=== PATIENT | male | born 1940 | race Caucasian/White ===

== ENCOUNTER 2017-12-06 14:55 | Emergency (ER) | payer MEDICARE ==
[2017-12-06] MEDS: ONDANSETRON PF 4 MG/2 ML VIAL. IV ×2 (16:06)
[2017-12-06] MEDS: IV NORMAL SALINE 500ML BAG 500 ML IV ×2 (16:07)
[2017-12-06] MEDS: fentaNYL PF VIAL 100 MCG/2 ML VIAL IV ×4 (16:07→17:45)
[2017-12-06 16:19] LABS: ADD MAN DIFF? NO
[2017-12-06 16:20] LABS: BASO % 0 % (0-3); EOS # 0.1 x10^3/uL (0.0-0.7); EOS % 1 % (0-3); HEMATOCRIT 45.8 % (39.0-53.0); HEMOGLOBIN 15.3 g/dL (13.0-17.5); LYMPH # 2.6 x10^3/uL (1.0-4.8); LYMPH % 27 % (24-48); MEAN CORPUSCULAR HEMOGLOBIN 30 pg (25-35); MEAN CORPUSCULAR HGB CONC 33 g/dL (31-37); MEAN CORPUSCULAR VOLUME 90 fL (79-100); MONO % 10 % (0-9); NEUT % 62 % (31-73); PLATELET COUNT 191 x10^3/uL (140-400); RED BLOOD COUNT 5.11 x10^6/uL (4.30-5.70); WHITE BLOOD COUNT 9.6 x10^3/uL (4.0-11.0)
[2017-12-06 16:32] LABS: BILIRUBIN,URINE NEGATIVE (NEG); COLOR,URINE YELLOW; GLUCOSE,URINE NEGATIVE (NEG); NITRITE,URINE POSITIVE (NEG); PROTEIN,URINE NEGATIVE (NEG-TRACE); UROBILINOGEN,URINE 0.2 mg/dL (0.2 mg/dL)
[2017-12-06 16:40] LABS: ANION GAP 6 (6-14); BLOOD UREA NITROGEN 19 mg/dL (8-26); BUN/CREATININE RATIO 16 (6-20); CALCIUM 9.3 mg/dL (8.5-10.1); CARBON DIOXIDE 30 mmol/L (21-32); CHLORIDE 102 mmol/L (98-107); CREATININE 1.2 mg/dL (0.7-1.3); GFR 58.6; GLUCOSE 121 mg/dL (70-99); POTASSIUM 3.6 mmol/L (3.5-5.1); SODIUM 138 mmol/L (136-145)
[2017-12-06 16:45] LABS: ALBUMIN 3.3 g/dL (3.4-5.0); ALBUMIN/GLOBULIN RATIO 0.8 (1.0-1.7); ALK PHOS 78 U/L (46-116); ALT (SGPT) 34 U/L (16-63); AST (SGOT) 21 U/L (15-37); TOTAL BILIRUBIN 0.4 mg/dL (0.2-1.0); TOTAL PROTEIN 7.6 g/dL (6.4-8.2)
[2017-12-06 16:46] LABS: CLARITY,URINE CLEAR
[2017-12-06 16:51] LABS: BACTERIA,URINE MODERATE /HPF (0-FEW); RBC,URINE 0 /HPF (0-2); SQUAMOUS EPITHELIAL CELL,UR OCC /LPF
== END 2017-12-06 18:35 | disposition home or self-care (01) ==
LOC: ER 14:55
DX: N39.0 Urinary tract infection, site not specified (principal); K21.9 Gastro-esophageal reflux disease without esophagitis; I10 Essential (primary) hypertension; E11.9 Type 2 diabetes mellitus without complications; Z96.641 Presence of right artificial hip joint
CPT/HCPCS: 36415; 74176; 80053; 81001; 85025; 87086; 87186; 96361; 96365; 96375; 96376; 99285-25; J0690; J2405; J3010; J7040

== ENCOUNTER 2019-03-08 19:49 | Inpatient (IN) | payer MEDICARE ==
[~2019-03-08] VITALS: Ht 193 cm; Wt 140.7 kg
[~2019-03-08 19:49] MED LIST: AMLO5TAB10 PO; ASCO10002 PO; ASPI-252 PO; ASPI-253 PO; BYSTOLIC10 MG PO; CHOL10003 PO; CHOL5000 PO; CRESTOR10 MG PO; ESOM20CA PO; ESOM40CA PO; FISH1CAP PO; GABA-585 PO; LOSA1TAB22 PO; METF500T16 PO; MIRA50TA PO; MULT-658 PO; NAPR220C4 PO; NITR100C62 PO; NORT25CA PO; OMEG1CAP38 PO; OMEP20TA63 PO; PITA2TAB2 PO; PRED1DRO OP; SIMV10TA3 PO; SUCR1TAB35 PO; TAMS0.4C97 PO; TIMO5SOL10 OP; TRAV5DRO EACHEYE; TROS20TA2 PO; [UNRECOGNIZED DRUG - CODE]
[2019-03-08] MEDS ORDERED: CEFEPIME HCL IV Push 2 GM VIAL. IVP ONE (20:00)
[2019-03-08] MEDS ORDERED: IV NORMAL SALINE 1000ML BAG 1,000 ML IV ONE ×4 (20:00→22:00)
[2019-03-08 20:09] LABS: BASO % 0 % (0-3); EOS % 0 % (0-3); HEMATOCRIT 47.8 % (39.0-53.0); HEMOGLOBIN 15.8 g/dL (13.0-17.5); LYMPH # 1.8 x10^3/uL (1.0-4.8); LYMPH % 20 % (24-48); MEAN CORPUSCULAR HEMOGLOBIN 31 pg (25-35); MEAN CORPUSCULAR HGB CONC 33 g/dL (31-37); MEAN CORPUSCULAR VOLUME 92 fL (79-100); MONO # 0.4 x10^3/uL (0.0-1.1); MONO % 5 % (0-9); NEUT # 6.6 x10^3uL (1.8-7.7); NEUT % 75 % (31-73); PLATELET COUNT 202 x10^3/uL (140-400); RED BLOOD COUNT 5.17 x10^6/uL (4.30-5.70); RED CELL DISTRIBUTION WIDTH 14.4 % (11.5-14.5); WHITE BLOOD COUNT 8.8 x10^3/uL (4.0-11.0)
--- NOTE | 2019-03-08 20:15 | RAD ---
CT CODE STROKE HEAD WO History: Left-sided weakness Comparison: None. Technique: Noncontrast CT imaging was performed of the head. Exposure: One or more of the following individualized dose reduction techniques were utilized for this examination: 1. Automated exposure control 2. Adjustment of the mA and/or kV according to patient size 3. Use of iterative reconstruction technique. Findings: There is motion degradation. No convincing acute intracranial hemorrhage is identified. There is mild to moderate supratentorial atrophy, prominence of bifrontal subarachnoid spaces. Ventricular size is within normal limits. There is atherosclerotic calcification of the carotid siphons bilaterally. Sifuenets-white differentiation of the major vascular territories is maintained. Visualized paranasal sinuses and mastoid air cells are aerated. Impression: 1. There is no evidence of acute intracranial hemorrhage. 2. There is supratentorial atrophy more greatly affecting frontal lobes. FOR INTERNAL CODING PURPOSES Critical result: Findings discussed with VAISHALI JOLLY at 03/08/2019 8:12 PM. RESULT CODE: (C) Electronically signed by: Darío Cohen MD (03/08/2019 8:13 PM) [facility]
[2019-03-08 20:21] LABS: CALCIUM 8.9 mg/dL (8.5-10.1); CREATININE 2.5 mg/dL (0.7-1.3); POTASSIUM 3.4 mmol/L (3.5-5.1)
--- NOTE | 2019-03-08 20:23 | RAD ---
CHEST AP ONLY History: Weakness, sepsis Comparison: 12/10/2012 Findings: Single view of the chest is submitted. There is a lesser degree of inspiration for this exam. Pericardial cardiac silhouette is somewhat prominent as seen previously. There is no new convincing lobar infiltrate. There is some degree of beam attenuation by soft tissues. There is no pneumothorax or convincing pleural fluid. Appearance of more prominent mediastinal width is probably accentuated by lesser degree of inspiration. Impression: 1. There is no convincing infiltrate allowing for limitations of exam, suboptimal inspiration. Electronically signed by: Darío Cohen MD (03/08/2019 8:20 PM) [facility]
--- NOTE | 2019-03-08 20:31 | PHYS DOC ---
Past Medical History Past Medical History: Arthritis, GERD, Hypertension, Kidney Stone Additional Past Medical Histor: "cancer" Past Surgical History: Hip Replacement, Tonsillectomy Additional Past Surgical Histo: r hip, r knee, hernia repair, r rotator cuff, left hip Alcohol Use: None Drug Use: None Adult General Chief Complaint Chief Complaint: NEURO SYMPTOMS/DEFICITS HPI HPI Patient is a 78 year old M who presents with near syncope. Pt went to use the restroom and could not get off the toilet. EMS was called. He is generally weak. Code stroke activated ADMINISTRATION PHYSICIAN. The patient's only complaint is weakness. He otherwise appears tired and cannot answer questions in detail. He denies recent illness, cp, sob. has arrived - he has been vomiting since 0300 this morning. Denies abd pain. Review of Systems Review of Systems Constitutional: Denies fever or chills Eyes: Denies change in visual acuity, redness, or eye pain HENT: Denies nasal congestion or sore throat Respiratory: Denies cough or shortness of breath Cardiovascular: Denies CP GI: Denies abdominal pain, nausea, vomiting, bloody stools or diarrhea : Denies dysuria or hematuria Musculoskeletal: Denies back pain or joint pain Integument: Denies rash or skin lesions Neurologic: Denies headache, focal weakness or sensory changes All other systems were reviewed and found to be within normal limits, except as documented in this note. Current Medications Current Medications Current Medications Medications (Trade) Dose Ordered Sig/Rylee Start Time Stop Time Status Last Admin Dose Admin Cefepime HCl (Maxipime) 2 gm 1X ONCE 03/08/19 20:00 03/08/19 20:07 DC 03/08/19 20:00 2 GM Sodium Chloride 1,000 ml @ 1,000 mls/hr 1X ONCE 03/08/19 20:00 03/08/19 20:59 DC 03/08/19 19:58 1,000 MLS/HR Allergies Allergies Allergies Coded Allergies Type Severity Reaction Last Updated Verified No Known Drug Allergies 09/19/13 No Physical Exam Physical Exam Constitutional: Well developed, well nourished, no acute distress, non-toxic appearance. HENT: Normocephalic, atraumatic, bilateral external ears normal, oropharynx moist, no oral exudates, nose normal. Eyes: PERRLA, EOMI, conjunctiva normal, no discharge. Neck: Normal range of motion, no tenderness, supple, no stridor. Cardiovascular:Heart rate regular rhythm, no murmur Lungs & Thorax: Bilateral breath sounds clear to auscultation Abdomen: Bowel sounds normal, soft, no tenderness, no masses, no pulsatile masses. Skin: Warm, dry, no erythema, no rash. Back: No tenderness, no CVA tenderness. Extremities: No tenderness, no cyanosis, no clubbing, ROM intact, no edema. Neurologic: Alert and oriented X 3, normal motor function, normal sensory function, no focal deficits noted. Psychologic: Affect normal, judgement normal, mood normal. Current Patient Data Vital Signs Vital Signs Date Time Temp Pulse Resp B/P (MAP) Pulse Ox O2 Delivery O2 Flow Rate FiO2 03/08/19 21:59 136 91/61 (71) 98 Nasal Cannula 6.0 03/08/19 19:59 20 03/08/19 19:50 99.0 99.0 Lab Values Laboratory Tests Test 03/08/19 20:00 03/08/19 20:50 White Blood Count 8.8 x10^3/uL (4.0-11.0) Red Blood Count 5.17 x10^6/uL (4.30-5.70) Hemoglobin 15.8 g/dL (13.0-17.5) Hematocrit 47.8 % (39.0-53.0) Mean Corpuscular Volume 92 fL (79-100) Mean Corpuscular Hemoglobin 31 pg (25-35) Mean Corpuscular Hemoglobin Concent 33 g/dL (31-37) Red Cell Distribution Width 14.4 % (11.5-14.5) Platelet Count 202 x10^3/uL (140-400) Neutrophils (%) (Auto) 75 % (31-73) H Lymphocytes (%) (Auto) 20 % (24-48) L Monocytes (%) (Auto) 5 % (0-9) Eosinophils (%) (Auto) 0 % (0-3) Basophils (%) (Auto) 0 % (0-3) Neutrophils # (Auto) 6.6 x10^3uL (1.8-7.7) Lymphocytes # (Auto) 1.8 x10^3/uL (1.0-4.8) Monocytes # (Auto) 0.4 x10^3/uL (0.0-1.1) Eosinophils # (Auto) 0.0 x10^3/uL (0.0-0.7) Basophils # (Auto) 0.0 x10^3/uL (0.0-0.2) Sodium Level 141 mmol/L (136-145) Potassium Level 3.4 mmol/L (3.5-5.1) L Chloride Level 101 mmol/L (98-107) Carbon Dioxide Level 16 mmol/L (21-32) L Anion Gap 24 (6-14) H Blood Urea Nitrogen 41 mg/dL (8-26) H Creatinine 2.5 mg/dL (0.7-1.3) H Estimated GFR (Cockcroft-Gault) 25.0 BUN/Creatinine Ratio 16 (6-20) Glucose Level 299 mg/dL (70-99) H Lactic Acid Level 8.9 mmol/L (0.4-2.0) *H Calcium Level 8.9 mg/dL (8.5-10.1) Total Bilirubin 0.4 mg/dL (0.2-1.0) Aspartate Amino Transferase (AST) 22 U/L (15-37) Alanine Aminotransferase (ALT) 27 U/L (16-63) Alkaline Phosphatase 77 U/L (46-116) Troponin I Quantitative 0.056 ng/mL (0.000-0.055) DF-Cbg-Z-Type Natriuretic Peptide 3915 pg/mL (0-449) H Total Protein 6.9 g/dL (6.4-8.2) Albumin 3.0 g/dL (3.4-5.0) L Albumin/Globulin Ratio 0.8 (1.0-1.7) L Urine Collection Type U cath Urine Color Yellow Urine Clarity Cloudy Urine pH 5.0 Urine Specific [place] 1.020 Urine Protein 100 mg/dL (NEG-TRACE) Urine Glucose (UA) Negative mg/dL (NEG) Urine Ketones (Stick) Trace mg/dL (NEG) Urine Blood Moderate (NEG) Urine Nitrite Negative (NEG) Urine Bilirubin Small (NEG) Urine Urobilinogen Dipstick 0.2 mg/dL (0.2 mg/dL) Urine Leukocyte Esterase Moderate (NEG) Urine RBC 6-10 /HPF (0-2) Urine WBC 11-20 /HPF (0-4) Urine Squamous Epithelial Cells Few /LPF Urine Amorphous Sediment Present /HPF Urine Bacteria Few /HPF (0-FEW) Urine Hyaline Casts Few /HPF Urine Mucus Marked /LPF Laboratory Tests 03/08/19 20:00 Laboratory Tests 03/08/19 20:00 EKG EKG [] Radiology/Procedures Radiology/Procedures [] Course & Med Decision Making Course & Med Decision Making Pertinent Labs and Imaging studies reviewed. (See chart for details) 78 y/o M presents for near syncope, gen weakness, vomiting. DDX: viral gastroenteritis vs sepsis vs cardiac CBC, CMP, CT head, CXR, Lactic, Blood cx, UA, Trop, BNP NS bolus, Zofran, Cefepime Sepsis reassessment: Pt responds adequately to fluids with incr in BP to 126 systolic. He is feeling better, mental status has improved. Labs show GILLES. Continue fluid resuscitation. Trop slightly elevated. Admit to Dr. Mtz. 4L fluid resuscitation req for sepsis with lactic greater than 4. BNP is slightly elevated. Will administer judiciously. He is receiving his second L in the ER. Start NS maintenance at 100 cc per hour. Repeat lactic trending down, now at 6. Continue fluid resuscitation. Critical care time: 45 minutes Dragon Disclaimer Dragon Disclaimer This electronic medical record was generated, in whole or in part, using a voice recognition dictation system. Departure Departure Impression: Primary Impression: Vomiting Additional Impressions: GILLES (acute kidney injury) Lactic acidosis Disposition: ADMITTED INPATIENT Admitting Physician: Other Condition: CRITICAL Referrals: TITO MTZ MD (PCP) Problem Qualifiers VAISHALI JOLLY MD March 08, 2019 20:31
[2019-03-08 20:36] LABS: ALBUMIN/GLOBULIN RATIO 0.8 (1.0-1.7); TOTAL BILIRUBIN 0.4 mg/dL (0.2-1.0); TOTAL PROTEIN 6.9 g/dL (6.4-8.2)
[2019-03-08 21:00] LABS: BILIRUBIN,URINE SMALL (NEG); CLARITY,URINE CLOUDY; COLOR,URINE YELLOW; NITRITE,URINE NEGATIVE (NEG); PROTEIN,URINE 100 mg/dL (NEG-TRACE); UROBILINOGEN,URINE 0.2 mg/dL (0.2 mg/dL)
[2019-03-08 21:22] LABS: AMORPHOUS SEDIMENT,UR PRESENT /HPF; BACTERIA,URINE FEW /HPF (0-FEW); HYALINE CASTS, URINE FEW /HPF; SQUAMOUS EPITHELIAL CELL,UR FEW /LPF
--- NOTE | 2019-03-08 21:27 | RAD ---
CT Abdomen and Pelvis without contrast History: Vomiting, elevated lactate Technique: Noncontrast CT imaging was performed of the abdomen and pelvis. Multiplanar images are reviewed. Exposure: One or more of the following individualized dose reduction techniques were utilized for this examination: 1. Automated exposure control 2. Adjustment of the mA and/or kV according to patient size 3. Use of iterative reconstruction technique. Comparison: 12/06/2017 Findings: There is mild lingular atelectasis or infiltrate near the base. There is some distention of stomach. Accurate evaluation of the abdominal visceral organs is limited without intravenous contrast, no obvious focal abnormality liver, spleen, pancreas. Gallbladder is present without obvious intraluminal abnormality by CT. There is no significant adrenal nodularity. There is no hydronephrosis. There is some strandy change of the bilateral perinephric fat although in part present previously. There is again exophytic lesion of the mid to inferior right kidney about 3.5 cm, density measurements greater than a simple cyst at 43 Hounsfield units. Evaluation of bowel is somewhat limited without oral contrast. Bowel is not considered significantly dilated. There is no free air or free fluid. There is some fluid in the more distal sigmoid colon to rectum. There is no CT evidence of acute appendicitis. There is some gas in the urinary bladder lumen, possible wall thickening of the urinary bladder. There is artifact in pelvis created by bilateral hip arthroplasties. There is multilevel advanced lumbar degenerative disc disease. There is also multilevel facet degenerative change. There is suspected moderate to severe spinal stenosis at L2-3, other variable lateral recess stenosis such as at L3-4. There is multilevel lumbar neural foramina compromise. There is some gas in the right iliac vein. Impression: 1. No significant localized inflammatory type change is identified about the bowel. There is no CT evidence of acute appendicitis. There is some nonspecific distention of the stomach. 2. There is a exophytic lesion of the right kidney, density measurements indeterminate for simple cyst. As a solid lesion is not excluded, nonemergent ultrasound evaluation is recommended. 3. There is multilevel lumbar degenerative disc disease and facet degenerative change. There is multilevel neural foramina compromise. There is suspected spinal stenosis greatest at L2-3. 4. There is mild lingular atelectasis or infiltrate. 5. There is focus of gas in the urinary bladder. If there has not been recent catheterization, infection with gas-forming organism is not excluded. 6. There is gas in the right iliac vein, could be related to recent IV if corresponding history. Electronically signed by: Darío Cohen MD (03/08/2019 9:24 PM) [facility]
[2019-03-08 22:45] VITALS: BP 83/53
[2019-03-08 23:00] VITALS: BP 94/51
[2019-03-08 23:15] VITALS: BP 91/62
[2019-03-08 23:30] VITALS: BP 92/61
[2019-03-08 23:45] VITALS: BP 84/57
[2019-03-09] VITALS (16 sets, daily range): BP systolic 84–124; BP diastolic 43–90
--- NOTE | 2019-03-09 07:41 | NUR ---
Pt. admitted to ICU room 114 from ED, arrived to unit on cart, transferred to ICU bed. Recheck lactic acid drawn in ED, critical results called to ED physician and Dr. Mtz. Dr. Mtz updated on pt. condition, to continue current POC. Spoke with Mary Alice, pt's by phone and updated on current condition. Pt. having copious loose foul smelling stools, sample sent to lab for c-dif testing. Rectal tube inserted to protect pt's skin.
--- NOTE | 2019-03-09 12:18 | PDOC ---
Provider Note Provider Note [id number] TITO HARRIS MD March 09, 2019 12:18
[2019-03-09] MEDS ORDERED: amLODIPine BESYLATE 5 MG TABLET PO SCH (12:30)
[2019-03-09] MEDS ORDERED: hydroCHLOROthiazide 25 MG TABLET PO SCH (12:30)
[2019-03-09] MEDS ORDERED: metFORMIN 500 MG TABLET PO SCH (12:30)
[2019-03-09] MEDS ORDERED: ASPIRIN ENTERIC COATED 81 MG TABLET.DR. PO SCH (12:30)
[2019-03-09] MEDS: METOPROLOL TART IMMED RELEASE 25 MG TABLET. PO SCH ×2 (12:30→21:32)
[2019-03-09] MEDS ORDERED: LOSARTAN POTASSIUM 50 MG TABLET. PO SCH (12:30)
--- NOTE | 2019-03-09 12:35 | HP ---
ADMIT DATE: 03/08/2019 CHIEF COMPLAINT: Weakness, fever, vomiting and diarrhea. HISTORY OF PRESENT ILLNESS: A 78-year-old white male with known diet-controlled diabetes, prostate cancer and dysfunctional bladder, had bladder Botox injections 2 days prior to admission at [facility]. He has had this procedure 3 or 4 times and had no problems. He received intraoperative antibiotics of some type and went home on no antibiotics. About 24 hours later, he developed vomiting and diarrhea, nonbloody in nature and increasing weakness and fatigue. He has had increasing weakness, fatigue in the last several weeks as well. He is on no meds for diabetes, but takes four blood pressure drugs and is on Zytiga and low-dose prednisone for prostate cancer suppression. He has not traveled recently. He has not had any unusual foods, no new medications, and his and family have not been ill. He does self-catheterization at home. PAST MEDICAL HISTORY: ALLERGIES: No drug allergies. MEDICATIONS: Multiple meds listed per the chart. Last A1c was 5 months ago was 6.7 in our office. IMMUNIZATION STATUS: Unknown. SOCIAL HISTORY: Retired, not physically active, nonsmoker, nondrinker. FAMILY HISTORY: Unremarkable. REVIEW OF SYSTEMS: No other known problems. OBJECTIVE: ENT: Skin pale, mucosa looked a little dry, otherwise unremarkable. NECK: No masses, nodes or thyroid enlargement. LUNGS: Clear, without tachypnea. CARDIOVASCULAR: Regular rate about 100. No murmurs heard. ABDOMEN: Soft, mildly distended, hyperreactive bowel sounds, nontender, no masses. EXTREMITIES: 1-2+ edema. Pedal pulses reasonable. No joint or skin lesions are seen. NEUROLOGIC: Physiologic, alert, appropriate, responsive, nonfocal. ASSESSMENT: 1. Acute renal failure, etiology is multifactorial including hypotension, iatrogenic, some degree of dehydration. 2. Fever, vomiting, diarrhea, etiology unclear. Most likely diagnosis appears to be C. diff colitis, but he has had minimal antibiotics. No recent travel or other obvious red flags. 3. Diet controlled diabetes. 4. Metastatic prostate cancer, controlled with Zytiga and prednisone, so the patient is immunosuppressed. 5. Hypotension secondary to multiple meds and dehydration. 6. Status post bladder Botox injections. PLAN: Continue vigorous fluids for now. Hold multiple meds, low dose hydrocortisone supplementation while we get blood and urine cultures. We will give a single dose of Flagyl to cover the possibility of C. diff colitis while the stool test is pending. We will follow renal function. Elevated troponin may well just be demand as he has had no cardiovascular symptoms and no significant history of same. TITO HARRIS MD DR: EDUAR/erik JOB#: [id number] / [id number]
[2019-03-09] MEDS: CHOLECALCIFEROL (VITAMIN D3) 1,000 UNIT TABLET PO SCH (13:18)
[2019-03-09] MEDS: HYDROCORTISONE SOD SUCC/PF 100 MG/2 ML VIAL. IV SCH ×2 (13:18→21:37)
[2019-03-09] MEDS: POTASSIUM CL 20MEQ D5-0.9%NACL 1,000 ML IV SCH ×2 (13:18→20:19)
[2019-03-09] MEDS: DEXAMETHASONE 0.1% OPHTH SOLUTION 5ML BOTTLE. OU SCH (13:19)
[2019-03-09] MEDS: GABAPENTIN 100 MG CAPSULE. PO SCH ×2 (13:19→21:31)
[2019-03-09] MEDS: TIMOLOL 0.25% OPHTH SOLUTION 5ML BOTTLE. OU SCH (13:19)
[2019-03-09] MEDS: PANTOPRAZOLE 40 MG TABLET.DR. PO SCH (13:19)
[2019-03-09] MEDS: HEPARIN for SUB-Q USE 5,000 UNIT/ML VIAL. SQ SCH ×2 (13:36→21:41)
[2019-03-09] MEDS: ACETAMINOPHEN 325 MG TABLET. PO PRN (16:24)
[2019-03-09] MEDS: SIMVASTATIN 10 MG TABLET PO SCH (21:31)
[2019-03-09] MEDS: LATANOPROST 0.005% OPHTH SOLUTION 2.5ML BOTTLE. OU SCH (21:31)
[2019-03-10] MEDS: ACETAMINOPHEN 325 MG TABLET. PO PRN ×3 (03:19→15:29)
[2019-03-10] MEDS: POTASSIUM CL 20MEQ D5-0.9%NACL 1,000 ML IV SCH ×2 (03:22→09:46)
[2019-03-10 03:43] VITALS: BP 103/58
[2019-03-10 05:36] LABS: CALCIUM 7.7 mg/dL (8.5-10.1); CREATININE 1.5 mg/dL (0.7-1.3); GFR 45.1
[2019-03-10] MEDS: HEPARIN for SUB-Q USE 5,000 UNIT/ML VIAL. SQ SCH ×3 (05:39→21:06)
[2019-03-10 07:16] VITALS: BP 116/63
[2019-03-10] MEDS: PANTOPRAZOLE 40 MG TABLET.DR. PO SCH (07:30)
[2019-03-10] MEDS: HYDROCORTISONE SOD SUCC/PF 100 MG/2 ML VIAL. IV SCH (08:35)
[2019-03-10] MEDS: DEXAMETHASONE 0.1% OPHTH SOLUTION 5ML BOTTLE. OU SCH (08:35)
[2019-03-10] MEDS: TIMOLOL 0.25% OPHTH SOLUTION 5ML BOTTLE. OU SCH (08:35)
[2019-03-10] MEDS: METOPROLOL TART IMMED RELEASE 25 MG TABLET. PO SCH ×2 (08:42→21:03)
[2019-03-10] MEDS: GABAPENTIN 100 MG CAPSULE. PO SCH ×3 (08:43→21:02)
[2019-03-10] MEDS: CHOLECALCIFEROL (VITAMIN D3) 1,000 UNIT TABLET PO SCH (08:43)
[2019-03-10] MEDS ORDERED: PRED5TAB PO (08:58)
[2019-03-10] MEDS ORDERED: LOSA1TAB22 PO (08:58)
[2019-03-10] MEDS ORDERED: AMLO5TAB10 PO (08:58)
[2019-03-10] MEDS ORDERED: BYSTOLIC10 MG PO (08:58)
[2019-03-10] MEDS ORDERED: ONDA4TAB12 PO (08:58)
[2019-03-10] MEDS ORDERED: FESO8TAB PO (08:58)
[2019-03-10] MEDS ORDERED: ABIR250T PO (08:58)
[2019-03-10] MEDS ORDERED: NON FORMULARY ITEM (Losartan/Hydrochlorothiazide (Losartan-Hctz 100-25 Mg Tab) 1 EACH) PO SCH (09:00)
[2019-03-10] MEDS ORDERED: NON FORMULARY ITEM (Mirabegron (Myrbetriq) 50 MG) PO SCH (09:00)
[2019-03-10 11:06] VITALS: BP 140/67
--- NOTE | 2019-03-10 11:10 | PDOC ---
Provider Note Provider Note no more diarrhea or fever- renal fx better r efluids, K+ lower, will adv diet , red fluids, add po kcl- c diff neg also- NEEDS TO BE IN HOSPITAL TITO HARRIS MD March 10, 2019 11:10
[2019-03-10] MEDS: traMADol 50 MG TABLET PO PRN (12:19)
[2019-03-10] MEDS: POTASSIUM CHLORIDE 10 MEQ TABLET.ER. PO SCH ×2 (12:19→17:40)
[2019-03-10 14:37] VITALS: BP 151/62
--- NOTE | 2019-03-10 15:03 | EKG ---
[facility] [address] [place] [address] Test Date: 2019-03-08 Test Time: 19:53:16 Pat Name: THUAN MEZA Department: Room: Gender: M Fleet Manager: : 1940 Requested By: VAISHALI JOLLY Order Number: [id number] Reading MD: Measurements Intervals [place] Rate: 128 P: -166 NC: 134 QRS: 146 QRSD: 124 T: 19 QT: 330 QTc: 485 Interpretive Statements SUPRAVENTRICULAR RHYTHM ABNORMAL RIGHT AXIS DEVIATION RVH WITH REPOLARIZATION ABNORMALITY ABNORMAL ECG RI6.01 Unconfirmed report No previous ECG available for comparison
[2019-03-10] MEDS: ONDANSETRON ODT 4 MG TAB.RAPDIS. PO PRN ×2 (16:53→22:57)
[2019-03-10 19:00] VITALS: BP 146/74
[2019-03-10] MEDS ORDERED: BENZOCAINE/MENTHOL LOZENGE. PO PRN (19:45)
[2019-03-10] MEDS: SIMVASTATIN 10 MG TABLET PO SCH (21:02)
[2019-03-10] MEDS: LATANOPROST 0.005% OPHTH SOLUTION 2.5ML BOTTLE. OU SCH (21:03)
[2019-03-10 22:50] VITALS: BP 146/78
[2019-03-11] MEDS: POTASSIUM CL 20MEQ D5-0.9%NACL 1,000 ML IV SCH (02:46)
[2019-03-11 03:15] VITALS: BP 144/70
[2019-03-11 03:49] LABS: CALCIUM 7.7 mg/dL (8.5-10.1); CREATININE 1.1 mg/dL (0.7-1.3); GFR 64.6; POTASSIUM 3.2 mmol/L (3.5-5.1)
[2019-03-11] MEDS: HEPARIN for SUB-Q USE 5,000 UNIT/ML VIAL. SQ SCH (05:50)
--- NOTE | 2019-03-11 05:59 | NUR ---
Pt is c/o SOB, pt has audible wheezes upon expiration, IV fluid turned off, Dr. Mtz paged for status changes. Spoke with Dr. Mtz, 40mg IV lasix x 1 and duoneb x 1 ordered. Will administer and monitor for status changes. Bed in low/locked position, call light within reach, VSS.
[2019-03-11] MEDS ORDERED: IPRATRPIUM/ALBUTEROL 0.5/2.5MG 3 ML NEBU. NEB ONE (06:00)
--- NOTE | 2019-03-11 06:14 | NUR ---
Pt refused to turn on his sides throughout shift, stating he's had bilateral hip replacements and it hurts to lay on them. Educated the pt on the importance of moving, and he states understanding.
[2019-03-11] MEDS ORDERED: FUROSEMIDE 40 MG/4 ML VIAL. IVP ONE (06:30)
[2019-03-11] MEDS ORDERED: HYDROCORTISONE SOD SUCC/PF 100 MG/2 ML VIAL. IV SCH (07:00)
[2019-03-11 07:30] VITALS: BP 154/73
--- NOTE | 2019-03-11 07:48 | PDOC ---
Provider Note Provider Note vss, bp better- output good, no more diarrhea/fever- renal back to normal, K+ 3.2- got wheezy so stopped iv saline, 1 dose lasix- helped- weak, will have pt see re ? rehab TITO HARRIS MD March 11, 2019 07:48
[2019-03-11] MEDS: PANTOPRAZOLE 40 MG TABLET.DR. PO SCH (08:09)
[2019-03-11] MEDS: POTASSIUM CHLORIDE 10 MEQ TABLET.ER. PO SCH ×3 (08:10→17:28)
[2019-03-11] MEDS: LOSARTAN POTASSIUM 50 MG TABLET. PO SCH (08:10)
[2019-03-11] MEDS: GABAPENTIN 100 MG CAPSULE. PO SCH ×3 (08:11→20:05)
[2019-03-11] MEDS: CHOLECALCIFEROL (VITAMIN D3) 1,000 UNIT TABLET PO SCH (08:11)
[2019-03-11] MEDS: METOPROLOL TART IMMED RELEASE 25 MG TABLET. PO SCH ×2 (08:11→20:04)
[2019-03-11] MEDS: TIMOLOL 0.25% OPHTH SOLUTION 5ML BOTTLE. OU SCH (08:12)
[2019-03-11] MEDS: traMADol 50 MG TABLET PO PRN ×2 (08:12→17:29)
[2019-03-11] MEDS: DEXAMETHASONE 0.1% OPHTH SOLUTION 5ML BOTTLE. OU SCH (08:14)
[2019-03-11 10:47] VITALS: BP 129/64
[2019-03-11] MEDS ORDERED: PRED5DRO16 RIGHTEYE (10:49)
[2019-03-11] MEDS: PREDNISOLONE OD SCH (12:27)
[2019-03-11] MEDS: ACETAMINOPHEN 325 MG TABLET. PO PRN (12:50)
[2019-03-11 15:00] VITALS: BP 134/69
[2019-03-11 19:05] VITALS: BP 148/72
[2019-03-11] MEDS: LATANOPROST 0.005% OPHTH SOLUTION 2.5ML BOTTLE. OU SCH (20:04)
[2019-03-11] MEDS: SIMVASTATIN 10 MG TABLET PO SCH (20:05)
[2019-03-11 22:35] VITALS: BP 136/67
[2019-03-12 02:40] VITALS: BP 126/69
[2019-03-12 07:00] VITALS: BP 153/74
[2019-03-12] MEDS: PANTOPRAZOLE 40 MG TABLET.DR. PO SCH (08:00)
[2019-03-12] MEDS: PREDNISOLONE OD SCH (08:00)
[2019-03-12] MEDS: CHOLECALCIFEROL (VITAMIN D3) 1,000 UNIT TABLET PO SCH (08:01)
[2019-03-12] MEDS: LOSARTAN POTASSIUM 50 MG TABLET. PO SCH (08:01)
[2019-03-12] MEDS: POTASSIUM CHLORIDE 10 MEQ TABLET.ER. PO SCH ×2 (08:01→13:02)
[2019-03-12] MEDS: GABAPENTIN 100 MG CAPSULE. PO SCH ×2 (08:01→13:02)
[2019-03-12] MEDS: METOPROLOL TART IMMED RELEASE 25 MG TABLET. PO SCH (08:02)
[2019-03-12] MEDS: TIMOLOL 0.25% OPHTH SOLUTION 5ML BOTTLE. OU SCH (08:04)
--- NOTE | 2019-03-12 08:46 | PDOC ---
Provider Note Provider Note [id number] TITO HARRIS MD March 12, 2019 08:46
[2019-03-12] MEDS ORDERED: predniSONE 10 MG TABLET PO SCH (09:00)
--- NOTE | 2019-03-12 10:57 | CARD ---
MR#: [id number] Date of Study: 03/10/2019 Ordering Physician: TITO HARRIS, Referring Physician: TITO HARRIS, Tech: Alba Sanchez APPROVED REPORT EXAM: Two-dimensional and M-mode echocardiogram with Doppler and color Doppler. Other Information Quality : FairHR: 82bpm Technically limited study due to body habitus. INDICATION Fatigue Elevated Troponin RISK FACTORS Diabetes 2D DIMENSIONS RVDd4.4 (2.9-3.5cm)Left Atrium(2D)3.8 (1.6-4.0cm) IVSd1.4 (0.7-1.1cm)Aortic Root(2D)3.7 (2.0-3.7cm) LVDd5.4 (3.9-5.9cm)LVOT Diameter2.2 (1.8-2.4cm) PWd1.4 (0.7-1.1cm)LVDs3.5 (2.5-4.0cm) FS (%) 34.5 %SV88.2 ml LVEF(%)63.1 (>50%) Aortic Valve AoV Peak Jean.152.0cm/sAoV VTI28.4cm AO Peak GR.9.2mmHgLVOT VTI 18.32cm AO Mean GR.5mmHg Mitral Valve MV E Mqzuemqs02.5cm/sMV DECEL [id number] MV A Oafrifsq01.0cm/sE/A Ratio0.9 TDI Lateral E' P. V9.27cm/sMedial E' P. V6.89cm/s E/Lateral E'8.6E/Medial E'11.5 Tricuspid Valve TR P. Uwphmtvx436pd/sRAP [id number] TR Peak Gr.54mhOyRCHV00lqCp Pulmonary Vein S1 Kijyjbta99.7cm/sS2 Cdkdpvcz06.42cm/s D2 Drznuymn33.4cm/sPVa [id number] LEFT VENTRICLE The left ventricle is normal size. There is moderate concentric left ventricular hypertrophy. The lef t ventricular systolic function is normal and the ejection fraction is within normal range. The Eject ion Fraction is >55%. There is normal LV segmental wall motion. Transmitral Doppler flow pattern is G rade I-abnormal relaxation pattern. RIGHT VENTRICLE The right ventricle is mildly dilated. The right ventricle is mildly to moderately hypertrophied. The right ventricular systolic function is normal. ATRIA The left atrium size is normal. The right atrium size is normal. The interatrial septum is intact wit h no evidence for an atrial septal defect or patent foramen ovale as noted on 2-D or Doppler imaging. AORTIC VALVE The aortic valve is normal in structure and function. Doppler and Color Flow revealed no significant aortic regurgitation. There is no significant aortic valvular stenosis. MITRAL VALVE The mitral valve is normal in structure and function. There is no evidence of mitral valve prolapse. There is no mitral valve stenosis. Doppler and Color Flow revealed no mitral valve regurgitation note d. TRICUSPID VALVE The tricuspid valve is normal in structure and function. Doppler and Color Flow revealed no tricuspid valve regurgitation noted with an estimated PAP of 36 mmHg. There is no tricuspid valve stenosis. PULMONIC VALVE The pulmonic valve is not well visualized. Doppler and Color Flow revealed no pulmonic valvular regur gitation. There is no pulmonic valvular stenosis. GREAT VESSELS The aortic root is normal in size. The IVC is dilated and collapses >50% with inspiration. PERICARDIAL EFFUSION There is a trace pericardial effusion. Critical Notification Critical Value: No <Conclusion> The left ventricular systolic function is normal and the ejection fraction is within normal range. Th e Ejection Fraction is >55%. There is normal LV segmental wall motion. Signed by : Braydon Graham, Electronically Approved : 03/10/2019 17:52:58
[2019-03-12 11:00] VITALS: BP 147/70
--- NOTE | 2019-03-12 12:48 | DS ---
DATE OF DISCHARGE: 03/12/2019 HOSPITAL SUMMARY: A 78-year-old white male came in with fever, nausea, vomiting, diarrhea and evidence of acute renal injury per lab. His BUN was up to 41 and creatinine 2.5. On admission, lactic acid was high at 8.9. Troponin was minimally elevated. Creatinine came down to baseline of 1.1. Potassium went from 3.0 up to 3.4. C. diff toxin in the stool was negative. Blood cultures had no growth. Pelvic and abdominal CT and chest x-ray showed no acute changes and the head CT as well. He was given a single dose of IV Flagyl, but C. diff toxin was negative and no further antibiotics were given. He was given aggressive fluid and potassium support and his renal failure resolved. The diarrhea and fever resolved without treatment and his potassium levels have come back up. Blood pressure meds were held and now his blood pressure is back to more or less normal. He is comfortable to be discharged with home health for physical therapy and followed as an outpatient. FINAL DIAGNOSES: 1. Acute renal failure secondary to dehydration. 2. Fever, abdominal pain and diarrhea likely secondary to viral gastroenteritis. 3. Hypokalemia secondary to diarrhea. OPERATIONS, PROCEDURES, COMPLICATIONS, AND CONSULTATIONS: None. DISPOSITION: All home meds remain the same. His oncologist will consider stopping his Zytiga and prednisone for a period of time because of some intolerance issues. Office followup in 1-2 weeks with me and dietary potassium source is discussed. PROGNOSIS: Good. TITO HARRIS MD DR: EDUAR/erik JOB#: [id number] / [id number]
--- NOTE | 2019-03-12 12:53 | NUR ---
SS following for discharge planning. Discharge orders for home healthcare received. Suzan from [facility] met with pt and discussed home healthcare. Pt agreeable to discharge to home with [facility], ; fax [phone]. Referral and discharge orders faxed to [facility], ; fax [phone].
--- NOTE | 2019-03-12 14:10 | NUR ---
Discharge Note: PT DISCHARGED HOME WITH [facility]. PT ALERT AND STABLE UPON DISCHARGE. PT LEFT VIA PRIVATE VEHICLE WITH . PT PIV TO L FA DISCONTINUED WITHOUT COMPLICATIONS, BANDAGE APPLIED. PT ESPINOSA CATH PULLED WITHOUT COMPLICATIONS OR COMPLAINTS. PT EDUCATED ABOUT FOLLOW-UP APPOINTMENTS, DISCHARGE MEDICATIONS, AND DISCHARGE INSTRUCTIONS NO CONCERNS VOICED. THUAN MEZA Discharge instructions and discharge home medications reviewed with Patient and a copy given. All questions have been answered and understanding verbalized.
== END 2019-03-12 14:19 | disposition home health service (06) | DRG 871 ==
LOC: ER 19:49 → 1 WEST ICU 21:59 → OBSVTOIN 03-09 15:18 → 2 SOUTH 03-09 15:51
PROVIDERS: ADMIT Family Medicine; ATTEND Family Medicine
DX: A41.9 Sepsis, unspecified organism (principal); N17.0 Acute kidney failure with tubular necrosis; C79.9 Secondary malignant neoplasm of unspecified site; E87.2 Acidosis; A08.4 Viral intestinal infection, unspecified; I95.2 Hypotension due to drugs; E86.0 Dehydration; C61 Malignant neoplasm of prostate; E11.9 Type 2 diabetes mellitus without complications; E87.6 Hypokalemia; I10 Essential (primary) hypertension; K21.9 Gastro-esophageal reflux disease without esophagitis; Z87.442 Personal history of urinary calculi; Z96.649 Presence of unspecified artificial hip joint; M19.90 Unspecified osteoarthritis, unspecified site; Z90.49 Acquired absence of other specified parts of digestive tract
CPT/HCPCS: 36415; 70450; 71045; 74176; 80048; 80053; 81001; 82962; 83605; 83880; 84484; 85025; 87040; 87086; 87186; 87493; 93005; 93306; 94640; 96361; 96374; G0378; G0379; J0692; J1644; J1720; J1940; J3490; J7030; J7512; J7620; Q0162; 97110; 99285-25

== ENCOUNTER → 2021-08-23 | Outpatient (CLI) | payer MEDICARE ==
[~2021-08-23] MED LIST changes: +ABIR250T PO; +AMLO-186 PO; -AMLO5TAB10 PO; +ASCO100019 PO; -ASCO10002 PO; +FESO8TAB PO; +MIRA25TA PO; -MIRA50TA PO; +ONDA4TAB12 PO; +PRED5DRO16 RIGHTEYE; +PRED5TAB PO; +SIMV10TA15 PO; -SIMV10TA3 PO
--- NOTE | 2021-08-23 18:08 | CARD ---
MR#: [id number] Date of Study: 08/23/2021 Ordering Physician: AUSTIN BUTLER, Referring Physician: AUSTIN BUTLER, Tech: Sariah Daniel, [facility] APPROVED REPORT EXAM: Two-dimensional and M-mode echocardiogram with Doppler and color Doppler. Other Information Quality : AverageHR: 74bpm Technically limited study due to body habitus. INDICATION Congestive Heart Failure RISK FACTORS Hypertension Diabetes 2D DIMENSIONS RVDd3.8 (2.9-3.5cm)Left Atrium(2D)4.0 (1.6-4.0cm) IVSd1.1 (0.7-1.1cm)Aortic Root(2D)3.7 (2.0-3.7cm) LVDd5.6 (3.9-5.9cm)LVOT Diameter2.1 (1.8-2.4cm) PWd1.2 (0.7-1.1cm)LVDs3.2 (2.5-4.0cm) FS (%) 42.6 %SV113.0 ml Aortic Valve AoV Peak Jean.144.7cm/sAoV VTI28.8cm AO Peak GR.8.4mmHgLVOT Peak Jean.129.1cm/s LVOT VTI 27.10cmAO Mean GR.5mmHg KEVIN (VMAX)2.24qg2XIC (VTI)3.38cm2 Mitral Valve MV E Hvfvphro30.2cm/sMV DECEL DXVQ207lt MV A Dkuvvgme73.2cm/sMV E Mean Gr.2mmHg MV UKL46jxS/A Ratio0.8 MVA (PHT)2.50cm2 TDI E/Lateral E'9.1E/Medial E'14.8 Pulmonary Valve PV Peak Kjtxyzvm580.2cm/sPV Peak Grad.4mmHg Tricuspid Valve TR P. Ajjjbyju079ry/sRAP RALQWAIQ1jpDr TR Peak Gr.66rdClDQUG45aqMd Pulmonary Vein S1 Qdjayztg64.0cm/sD2 Ntwpvvds06.8cm/s PVa pgbhdieu992kshg LEFT VENTRICLE The left ventricle is normal size. There is mild concentric left ventricular hypertrophy. The left ve ntricular systolic function is normal and the ejection fraction is within normal range. The Ejection Fraction is 55-60%. There is normal LV segmental wall motion. Transmitral Doppler flow pattern is Gra de I-abnormal relaxation pattern. RIGHT VENTRICLE The right ventricle is borderline dilated. There is normal right ventricular wall thickness. The righ t ventricular systolic function is normal. ATRIA The left atrium size is normal. The right atrium size is normal. The interatrial septum is intact wit h no evidence for an atrial septal defect or patent foramen ovale as noted on 2-D or Doppler imaging. AORTIC VALVE The aortic valve is normal in structure and function. Doppler and Color Flow revealed trace aortic re gurgitation. There is no significant aortic valvular stenosis. Calculated aortic valve area is 3.23 c m2 with maximum pressure gradient of 10 mmHg and mean pressure gradient of 5 mmHg. MITRAL VALVE The mitral valve is normal in structure and function. There is no evidence of mitral valve prolapse. There is no mitral valve stenosis. Doppler and Color Flow revealed trace mitral valve regurgitation n oted. TRICUSPID VALVE The tricuspid valve is normal in structure and function. Doppler and Color Flow revealed trace tricus pid regurgitation with an estimated PAP of 29 mmHg. There is no tricuspid valve stenosis. PULMONIC VALVE The pulmonic valve is not well visualized. Doppler and Color Flow revealed trace pulmonic valvular re gurgitation. GREAT VESSELS The aortic root is normal in size. The IVC was not visualized. PERICARDIAL EFFUSION There is no evidence of significant pericardial effusion. Critical Notification Critical Value: No <Conclusion> The left ventricle is normal size. The left ventricular systolic function is normal and the ejection fraction is within normal range. The Ejection Fraction is 55-60%. There is mild concentric left ventricular hypertrophy. Doppler and Color Flow revealed trace aortic regurgitation. There is no significant aortic valvular stenosis. Doppler and Color Flow revealed trace mitral valve regurgitation. Doppler and Color Flow revealed trace tricuspid regurgitation with an estimated PAP of 29 mmHg. Signed by : Alexandre Woodward MD Electronically Approved : 08/23/2021 18:08:10
== END ==
LOC: ECHO 13:43
PROVIDERS: ATTEND Internal Medicine Cardiovascular Disease
DX: I51.7 Cardiomegaly (principal); I50.32 Chronic diastolic (congestive) heart failure
CPT/HCPCS: 93306